=== PATIENT | male | born 1935 | race Caucasian/White ===

== ENCOUNTER 2023-09-07 15:23 | Inpatient (IN) | payer OTHER ==
[~2023-09-07] VITALS: Ht 157.5 cm; Wt 79.1 kg
[2023-09-07] MEDS ORDERED: ACET500C4 PO (15:58)
[2023-09-07] MEDS ORDERED: ALBU18HF12 IH (15:58)
[2023-09-07] MEDS ORDERED: ALLO100T50 PO (15:58)
[2023-09-07] MEDS ORDERED: GYNEVAG VG (16:01)
[2023-09-07] MEDS ORDERED: ENAL-91 PO (16:01)
[2023-09-07] MEDS ORDERED: COLC0.6T73 PO (16:01)
[2023-09-07] MEDS ORDERED: CETI5TAB14 PO (16:01)
[2023-09-07] MEDS ORDERED: FURO-152 PO (16:01)
[2023-09-07] MEDS ORDERED: OMEG-136 PO (16:10)
[2023-09-07] MEDS ORDERED: POLY250020 PO (16:10)
[2023-09-07] MEDS ORDERED: GLUC500T PO (16:10)
[2023-09-07] MEDS ORDERED: TADA20TA31 PO (16:10)
[2023-09-07] MEDS ORDERED: LOPE2TAB26 PO (16:10)
[2023-09-07] MEDS ORDERED: HYDR-4062 PO (16:10)
[2023-09-07] MEDS ORDERED: GABA-1181 PO (16:10)
[2023-09-07] MEDS ORDERED: PRAV10TA2 PO (16:10)
[2023-09-07] MEDS ORDERED: SEMA0.258 SQ (16:10)
[2023-09-07] MEDS ORDERED: EMPA10TA3 PO (16:15)
[2023-09-07] MEDS ORDERED: TAMS0.4C94 PO (16:15)
[2023-09-07] MEDS ORDERED: FERR-82 PO (16:15)
[2023-09-07] MEDS ORDERED: PRED-554 PO (16:15)
[2023-09-07] MEDS ORDERED: METO25 PO (16:15)
[2023-09-07] MEDS ORDERED: ATOR40TA28 PO (16:15)
[2023-09-07] MEDS ORDERED: ONDA-104 PO (16:15)
[2023-09-07 16:20] LABS: BASOPHILS % (AUTO) 0.6 % (0.0-2.0); EOSINOPHILS % (AUTO) 2.8 % (1.0-6.0); HEMOGLOBIN 11.5 g/dL (13.5-17.5); LYMPHOCYTES # (AUTO) 0.7 K/uL (1.0-4.8); LYMPHOCYTES % (AUTO) 7.5 % (22.0-44.0); MEAN CORPUSCULAR HEMOGLOBIN 30.9 pg (26.0-34.0); MEAN CORPUSCULAR HGB CONC 32.9 G/dL (31.0-37.0); MEAN CORPUSCULAR VOLUME 94 fL (80-100); MONOCYTES % (AUTO) 10.6 % (2.0-9.0); NEUTROPHILS # (AUTO) 7.6 K/uL (1.8-7.7); NEUTROPHILS % (AUTO) 78.5 % (40.0-70.0); PLATELET COUNT (AUTO) 205 K/uL (150-450); RED BLOOD CELL COUNT(AUTO) 3.72 MIL/uL (4.50-5.90); RED CELL DISTRIBUTION WIDTH 17.7 % (11.5-14.5); WHITE BLOOD COUNT (AUTO) 9.7 K/uL (4.5-11.0)
[2023-09-07 16:30] LABS: CALCIUM, TOTAL 8.2 mg/dL (8.8-10.5); CREATININE 1.92 mg/dL (0.60-1.30); POTASSIUM 4.6 mmol/L (3.5-5.1)
[2023-09-07] MEDS: AZITHROMYCIN 500 MG/NS 250 ML IV ONE (16:35)
[2023-09-07 16:36] LABS: ALBUMIN 1.9 g/dL (3.4-5.0); BILIRUBIN,TOTAL 0.5 mg/dL (0.1-1.0); TOTAL PROTEIN, SERUM 5.8 g/dL (6.4-8.2)
[2023-09-07] MEDS ORDERED: CETI-450 PO (16:36)
[2023-09-07] MEDS ORDERED: TADA5TAB5 PO (16:36)
[2023-09-07] MEDS: CefTRIAXone 1 GM/DEXTROSE 50 ML IV ONE (16:36)
[2023-09-07 16:38] LABS: TROPONIN I-HIGH SENSITIVITY 32 ng/L (<76)
[2023-09-07] MEDS: FUROSEMIDE 40 MG/4 ML VIAL IVP ONE (17:07)
[2023-09-07] MEDS: IPRATROPIUM BROMIDE 0.5 MG/2.5 ML NEB SOLUTION NEB ONE (17:15)
[2023-09-07] MEDS: ALBUTEROL SULFATE 2.5 MG/0.5 ML NEB SOLUTION NEB ONE (17:15)
[2023-09-07 17:43] LABS: APPEARANCE,URINE CLEAR (CLEAR); BILIRUBIN,URINE NEGATIVE (NEGATIVE); COLOR,URINE LIGHT YELLOW (YELLOW); GLUCOSE, URINE (UA) TRACE mg/dL (NEGATIVE); KETONES,URINE NEGATIVE (NEGATIVE); LEUKOCYTE ESTERASE ,URINE NEGATIVE (NEGATIVE); NITRATE,URINE NEGATIVE (NEGATIVE); OCCULT BLOOD,URINE NEGATIVE (NEGATIVE); PROTEIN,URINE NEGATIVE (NEGATIVE); SPECIFIC GRAVITIY, URINE 1.008 (1.003-1.030); UROBILINOGEN,URINE <=1.0 mg/dL (<=1.0)
[2023-09-07] MEDS ORDERED: ALBUTEROL SULFATE 2.5 MG/0.5 ML NEB SOLUTION NEB PRN ×2 (18:45)
[2023-09-07] MEDS ORDERED: ACETAMINOPHEN 325 MG TABLET PO PRN (18:45)
[2023-09-07] MEDS ORDERED: ZOLPIDEM TARTRATE 5 MG TABLET PO PRN (18:45)
[2023-09-07] MEDS ORDERED: BISACODYL 10 MG RECTAL RECTAL SUPPOSITORY PR PRN (18:45)
[2023-09-07] MEDS ORDERED: MORPHINE SULFATE 2 MG/ML SYRINGE IVP PRN (18:45)
[2023-09-07] MEDS ORDERED: ONDANSETRON HCL 4 MG/2 ML VIAL IVP PRN (18:45)
[2023-09-07] MEDS ORDERED: MAGNESIUM HYDROXIDE SUSPENSION 30 ML UDCUP PO PRN (18:45)
[2023-09-07] MEDS ORDERED: IPRATROPIUM BROMIDE 0.5 MG/2.5 ML NEB SOLUTION NEB PRN ×2 (18:45)
[2023-09-07] MEDS ORDERED: HYDROCODONE/ACETAMINOPHEN 5-325 MG TABLET PO PRN (18:45)
[2023-09-07 18:48] LABS: INFLUENZA A-RTPCR,COMBO NEGATIVE (NEGATIVE); INFLUENZA B-RTPCR,COMBO NEGATIVE (NEGATIVE); RESPIRATORY SYNCYTIAL VRS-PCR NEGATIVE (NEGATIVE); SARS COVID19 RTPCR, COMBO NEGATIVE (NEGATIVE)
[2023-09-07] MEDS: GuaiFENesin SR 600 MG ER TABLET PO SCH (21:00)
[2023-09-07] MEDS: BENZONATATE 100 MG CAPSULE PO SCH (21:00)
[2023-09-07] MEDS: DOCUSATE SODIUM 100 MG CAPSULE PO SCH (21:00)
[2023-09-07] MEDS: METOPROLOL TARTRATE 25 MG TABLET PO SCH (21:00)
[2023-09-07] MEDS: LEVOFLOXACIN 750 MG/D5% WATER 150 ML IV SCH (21:40)
[2023-09-07] MEDS: IPRATROPIUM BROMIDE 0.5 MG/2.5 ML NEB SOLUTION NEB SCH (21:47)
[2023-09-07] MEDS: ALBUTEROL SULFATE 2.5 MG/0.5 ML NEB SOLUTION NEB SCH (21:47)
[2023-09-07 21:50] VITALS: PULSE 74; PULSE 75; RESP 24; O2SAT 95
[2023-09-07 23:37] VITALS: BP 91/57; PULSE 78; RESP 18; TEMP 97.6
[2023-09-08] VITALS (13 sets, daily range): BP systolic 108–139; BP diastolic 51–80; PULSE 60–105; RESP 18–24; TEMP 97.6–98.2; O2SAT 89–98
[2023-09-08] MEDS: MethylPREDNISolone SOD SUCC 125 MG/2 ML VIAL IVP SCH (00:51)
[2023-09-08] MEDS: HEPARIN SODIUM,PORCINE 5,000 UNITS/ML VIAL SQ SCH (00:51)
[2023-09-08 07:02] LABS: CALCIUM, TOTAL 8.2 mg/dL (8.8-10.5); CREATININE 1.63 mg/dL (0.60-1.30); POTASSIUM 5.1 mmol/L (3.5-5.1)
[2023-09-08 07:09] LABS: HEMATOCRIT 37.3 % (41-53); HEMOGLOBIN 12.3 g/dL (13.5-17.5); MEAN CORPUSCULAR HEMOGLOBIN 30.7 pg (26.0-34.0); MEAN CORPUSCULAR HGB CONC 32.9 G/dL (31.0-37.0); MEAN CORPUSCULAR VOLUME 93 fL (80-100); PLATELET COUNT (AUTO) 219 K/uL (150-450); RED BLOOD CELL COUNT(AUTO) 3.99 MIL/uL (4.50-5.90); RED CELL DISTRIBUTION WIDTH 17.9 % (11.5-14.5); WHITE BLOOD COUNT (AUTO) 9.5 K/uL (4.5-11.0)
[2023-09-08 07:22] LABS: BAND NEUTROPHILS % (MANUAL) 0 % (0-5)
[2023-09-08 08:34] LABS: LYMPHOCYTES % (MANUAL) 8 % (22-44); MONOCYTES % (MANUAL) 4 % (2-9); SEGMENTED NEUTROPHILS % 88 % (40-70); TOTAL CELLS COUNTED 100
[2023-09-08] MEDS: PANTOPRAZOLE SODIUM 40 MG DR TABLET PO SCH (09:06)
[2023-09-08] MEDS: ATORVASTATIN CALCIUM 40 MG TABLET PO SCH (09:06)
[2023-09-08] MEDS: TAMSULOSIN HCL 0.4 MG CAPSULE PO SCH (09:06)
[2023-09-09] VITALS (15 sets, daily range): BP systolic 95–133; BP diastolic 52–76; PULSE 80–103; RESP 18–22; TEMP 97.7–98.3; O2SAT 92–98
[2023-09-09 06:27] LABS: HEMATOCRIT 35.8 % (41-53); HEMOGLOBIN 11.8 g/dL (13.5-17.5); MEAN CORPUSCULAR HEMOGLOBIN 30.7 pg (26.0-34.0); MEAN CORPUSCULAR HGB CONC 32.8 G/dL (31.0-37.0); MEAN CORPUSCULAR VOLUME 93 fL (80-100); PLATELET COUNT (AUTO) 261 K/uL (150-450); RED BLOOD CELL COUNT(AUTO) 3.84 MIL/uL (4.50-5.90); RED CELL DISTRIBUTION WIDTH 17.5 % (11.5-14.5); WHITE BLOOD COUNT (AUTO) 14.4 K/uL (4.5-11.0)
[2023-09-09 07:10] LABS: CALCIUM, TOTAL 8.5 mg/dL (8.8-10.5); CREATININE 1.7 mg/dL (0.60-1.30); POTASSIUM 4.3 mmol/L (3.5-5.1)
[2023-09-09] MEDS: BIMATOPROST 0.01% 2.5 ML OPHTHALMIC SOLUTION OU SCH (08:41)
[2023-09-09 09:19] LABS: BAND NEUTROPHILS % (MANUAL) 0 % (0-5)
[2023-09-09 09:21] LABS: LYMPHOCYTES % (MANUAL) 6 % (22-44); MONOCYTES % (MANUAL) 5 % (2-9); SEGMENTED NEUTROPHILS % 89 % (40-70); TOTAL CELLS COUNTED 100
[2023-09-09 11:55] LABS: GLUCOMETER DEV NAME(LOC) 5S.2C; GLUCOSE,POINT OF CARE 466 MG/DL (70-110)
[2023-09-09] MEDS ORDERED: DEXTROSE 50%-WATER 25 GM/50 ML SYRINGE IVP PRN (12:15)
[2023-09-09] MEDS ORDERED: GLUCAGON,HUMAN RECOMBINANT 1 MG VIAL IM PRN (12:15)
[2023-09-09] MEDS: INSULIN LISPRO 100 UNITS/ML SQ PRN (12:23)
[2023-09-09 18:11] LABS: GLUCOMETER DEV NAME(LOC) 5S.2C; GLUCOSE,POINT OF CARE 406 MG/DL (70-110)
[2023-09-09] MEDS: LEVOFLOXACIN 750 MG/D5% WATER 150 ML IV SCH (20:35)
[2023-09-09 23:06] LABS: GLUCOMETER DEV NAME(LOC) 5S.2C; GLUCOSE,POINT OF CARE 347 MG/DL (70-110)
[2023-09-10] VITALS (9 sets, daily range): BP systolic 117–134; BP diastolic 78–83; PULSE 66–94; RESP 16–22; TEMP 97.3–98; O2SAT 90–99
[2023-09-10 07:53] LABS: EOSINOPHILS % (AUTO) 0 % (1.0-6.0); HEMATOCRIT 35.7 % (41-53); HEMOGLOBIN 11.7 g/dL (13.5-17.5); LYMPHOCYTES # (AUTO) 0.6 K/uL (1.0-4.8); LYMPHOCYTES % (AUTO) 4.7 % (22.0-44.0); MEAN CORPUSCULAR HEMOGLOBIN 30.4 pg (26.0-34.0); MEAN CORPUSCULAR HGB CONC 32.7 G/dL (31.0-37.0); MEAN CORPUSCULAR VOLUME 93 fL (80-100); MONOCYTES # (AUTO) 0.5 K/uL (0.1-1.0); MONOCYTES % (AUTO) 3.9 % (2.0-9.0); NEUTROPHILS # (AUTO) 12.3 K/uL (1.8-7.7); PLATELET COUNT (AUTO) 274 K/uL (150-450); RED BLOOD CELL COUNT(AUTO) 3.83 MIL/uL (4.50-5.90); RED CELL DISTRIBUTION WIDTH 17.4 % (11.5-14.5); WHITE BLOOD COUNT (AUTO) 13.4 K/uL (4.5-11.0)
[2023-09-10 07:59] LABS: NEUTROPHILS % (AUTO) 91.4 % (40.0-70.0)
[2023-09-10 08:03] LABS: CALCIUM, TOTAL 8.6 mg/dL (8.8-10.5); CREATININE 1.39 mg/dL (0.60-1.30); POTASSIUM 4.5 mmol/L (3.5-5.1)
[2023-09-10 11:56] LABS: GLUCOMETER DEV NAME(LOC) 5S.1B; GLUCOSE,POINT OF CARE 329 MG/DL (70-110)
[2023-09-10 19:00] LABS: GLUCOMETER DEV NAME(LOC) 6S.2; GLUCOSE,POINT OF CARE 286 MG/DL (70-110)
[2023-09-10 19:00] LABS: GLUCOMETER DEV NAME(LOC) 4E.2; GLUCOSE,POINT OF CARE 332 MG/DL (70-110)
[2023-09-10 19:06] LABS: MYCOPLASMA AB IGG 124 U/mL (0-99); MYCOPLASMA AB IGM <770 U/mL (0-769)
[2023-09-11] VITALS (11 sets, daily range): BP systolic 115–132; BP diastolic 55–77; PULSE 72–99; RESP 14–18; TEMP 97.7–98.3; O2SAT 91–98
[2023-09-11 07:05] LABS: HEMATOCRIT 35.6 % (41-53); HEMOGLOBIN 11.7 g/dL (13.5-17.5); MEAN CORPUSCULAR HEMOGLOBIN 30.5 pg (26.0-34.0); MEAN CORPUSCULAR HGB CONC 32.9 G/dL (31.0-37.0); MEAN CORPUSCULAR VOLUME 93 fL (80-100); PLATELET COUNT (AUTO) 285 K/uL (150-450); RED BLOOD CELL COUNT(AUTO) 3.83 MIL/uL (4.50-5.90); RED CELL DISTRIBUTION WIDTH 17.6 % (11.5-14.5); WHITE BLOOD COUNT (AUTO) 10.9 K/uL (4.5-11.0)
[2023-09-11 07:17] LABS: BAND NEUTROPHILS % (MANUAL) 1 % (0-5); LYMPHOCYTES % (MANUAL) 6 % (22-44); MONOCYTES % (MANUAL) 4 % (2-9); SEGMENTED NEUTROPHILS % 89 % (40-70); TOTAL CELLS COUNTED 100
[2023-09-11 07:22] LABS: CALCIUM, TOTAL 8.7 mg/dL (8.8-10.5); CREATININE 1.51 mg/dL (0.60-1.30); POTASSIUM 4.2 mmol/L (3.5-5.1)
[2023-09-11 07:56] LABS: GLUCOMETER DEV NAME(LOC) 6S.2; GLUCOSE,POINT OF CARE 319 MG/DL (70-110)
[2023-09-11 07:56] LABS: GLUCOMETER DEV NAME(LOC) 4E.2; GLUCOSE,POINT OF CARE 324 MG/DL (70-110)
[2023-09-11] MEDS: PredniSONE 10 MG TABLET PO SCH (08:30)
[2023-09-11] MEDS: FUROSEMIDE 20 MG/2 ML VIAL IVP ONE (14:04)
[2023-09-11 15:07] LABS: LEGIONELLA PNEUMO AG URINE Negative (Negative); S PNEUMO SOURCE Urine; STREP PNEUMONIAE AG URINE Negative (Negative)
[2023-09-11] MEDS ORDERED: SODIUM CHLORIDE 0.9% 250 ML IV ONE (20:15)
[2023-09-11] MEDS: FLUOROMETHOLONE 0.1% 5 ML OPHTHALMIC SUSPENSION OU SCH (21:00)
[2023-09-11] MEDS: DORZOLAMIDE HCL 2% 10 ML OPHTHALMIC SOLUTION OU SCH (21:00)
[2023-09-12 04:12] VITALS: BP 120/64; PULSE 70; RESP 18; TEMP 98.3
[2023-09-12 07:46] LABS: GLUCOMETER DEV NAME(LOC) 6S.2; GLUCOSE,POINT OF CARE 196 MG/DL (70-110)
[2023-09-12 07:46] LABS: GLUCOMETER DEV NAME(LOC) 4E.2; GLUCOSE,POINT OF CARE 400 MG/DL (70-110)
[2023-09-12 07:46] LABS: EOSINOPHILS % (AUTO) 0.2 % (1.0-6.0); HEMATOCRIT 36.1 % (41-53); HEMOGLOBIN 11.9 g/dL (13.5-17.5); LYMPHOCYTES # (AUTO) 1.4 K/uL (1.0-4.8); LYMPHOCYTES % (AUTO) 12.3 % (22.0-44.0); MEAN CORPUSCULAR HEMOGLOBIN 30.7 pg (26.0-34.0); MEAN CORPUSCULAR HGB CONC 33.1 G/dL (31.0-37.0); MEAN CORPUSCULAR VOLUME 93 fL (80-100); MONOCYTES # (AUTO) 0.9 K/uL (0.1-1.0); MONOCYTES % (AUTO) 7.5 % (2.0-9.0); NEUTROPHILS # (AUTO) 9.4 K/uL (1.8-7.7); PLATELET COUNT (AUTO) 294 K/uL (150-450); RED BLOOD CELL COUNT(AUTO) 3.89 MIL/uL (4.50-5.90); RED CELL DISTRIBUTION WIDTH 17.2 % (11.5-14.5); WHITE BLOOD COUNT (AUTO) 11.7 K/uL (4.5-11.0)
[2023-09-12 07:46] LABS: GLUCOMETER DEV NAME(LOC) 4E.2; GLUCOSE,POINT OF CARE 320 MG/DL (70-110)
[2023-09-12 07:46] LABS: GLUCOMETER DEV NAME(LOC) 6S.2; GLUCOSE,POINT OF CARE 266 MG/DL (70-110)
[2023-09-12 08:29] VITALS: PULSE 80; RESP 16; O2SAT 96
[2023-09-12 08:30] VITALS: PULSE 80; RESP 16; O2SAT 98
[2023-09-12 08:31] VITALS: BP 141/82; PULSE 83; RESP 20; TEMP 97.7
[2023-09-12] MEDS ORDERED: LEVO750T68 PO (08:48)
[2023-09-12] MEDS ORDERED: PANT-31 PO (08:48)
[2023-09-12] MEDS ORDERED: PRED-729 PO (08:48)
[2023-09-12] MEDS ORDERED: PRED-549 PO (08:48)
[2023-09-12] MEDS ORDERED: FURO20 PO (08:48)
[2023-09-12] MEDS ORDERED: FLUT1BLS IH (08:53)
[2023-09-12] MEDS ORDERED: IPRA4AER IH (08:53)
[2023-09-12 17:10] LABS: GLUCOMETER DEV NAME(LOC) 6N.2B; GLUCOSE,POINT OF CARE 295 MG/DL (70-110)
[2023-09-15 15:07] LABS: COCCI IGG TITER COMP.FIX-KERN <1:2; COCCIOIDES AB IGG (ID)-KERN Non Reactive; COCCIOIDES AB IGM (ID)-KERN Non Reactive
== END 2023-09-12 15:15 | disposition home or self-care (01) | DRG 193 ==
LOC: EMS 15:23 → AHU 17:04 → 5S 20:18 → 6S 09-10 06:46
PROVIDERS: ADMIT Internal Medicine; ATTEND Internal Medicine
DX: J18.9 Pneumonia, unspecified organism (principal); I50.33 Acute on chronic diastolic (congestive) heart failure; J96.01 Acute respiratory failure with hypoxia; I13.0 Hypertensive heart and chronic kidney disease with heart failure and stage 1 through stage 4 chronic kidney disease, or unspecified chronic kidney disease; J44.1 Chronic obstructive pulmonary disease with (acute) exacerbation; N17.9 Acute kidney failure, unspecified; J44.0 Chronic obstructive pulmonary disease with (acute) lower respiratory infection; I50.30 Unspecified diastolic (congestive) heart failure; Z20.822 Contact with and (suspected) exposure to COVID-19; E78.5 Hyperlipidemia, unspecified; E66.9 Obesity, unspecified; N40.0 Benign prostatic hyperplasia without lower urinary tract symptoms; N18.9 Chronic kidney disease, unspecified; E11.22 Type 2 diabetes mellitus with diabetic chronic kidney disease; Z79.899 Other long term (current) drug therapy
CPT/HCPCS: 0241U; 71045; 71250; 80048; 80053; 81003; 82962; 83880; 84484; 85025; 86171; 86738; 87040; 87449; 87899; 93005; 93306; 93970; 94640; 99291; G0378; J0456; J0696; J1644; J1940; J1956; J2919; J7050; 36415-L1; 36415-TC; J7512; J7613; Z7610